=== PATIENT | female | born 1995 | race Caucasian/White ===

== ENCOUNTER → 2020-12-15 | Outpatient (CLI) | payer OTHER ==
[2014-11-17 19:05] VITALS: BP 105/55
[~2020-12-15] MED LIST: NORE1TAB11 PO
--- NOTE | 2020-12-15 16:55 | RAD ---
EXAMINATION: US BREAST RT, 12/15/2020 1:20 PM CLINICAL INDICATION: 25-year-old woman presenting for right breast ultrasound for palpable lump at 5 :00, the size of a pea. COMPARISON: None. TECHNIQUE: Targeted ultrasound of the lower inner quadrant of the right breast was performed in the a mehdi of palpable concern by the technologist. FINDINGS: There is normal fibroglandular tissue. No cystic or solid mass or other abnormality in the area of concern in the right breast. IMPRESSION: 1. No evidence of malignancy or sonographic finding to correlate to the area of palpable concern. 2. BI-RADS 1: Negative. 3. Recommend routine annual screening mammograms beginning at age of 40. Electronically signed by: Kaela Mann MD (12/15/2020 4:52 PM) [id number]
== END ==
LOC: MAMMO 13:08
PROVIDERS: ATTEND Advanced Practice Midwife
DX: N64.4 Mastodynia (principal)
CPT/HCPCS: 76641